=== PATIENT | male | born 1995 | race Caucasian/White ===

== ENCOUNTER → 2023-05-02 13:47 | Outpatient (BNVA) | payer BC, SELFPAY | PROVIDERS: Family Provider Family Medicine; Visit Provider Podiatrist Foot & Ankle Surgery | DX: S86.011A Strain of right Achilles tendon, initial encounter (principal); M62.81 Muscle weakness (generalized); X58.XXXA Exposure to other specified factors, initial encounter | CPT/HCPCS: 73610 ==

== ENCOUNTER → 2023-05-03 10:44 | Outpatient (BNVA) | payer BC, SELFPAY | PROVIDERS: Family Provider Family Medicine; PCP Family Medicine; Visit Provider Family Medicine | DX: Z68.35 Body mass index [BMI] 35.0-35.9, adult (principal) | CPT/HCPCS: 80053; 80061; 84439; 84443; 85025 ==